=== PATIENT | female | born 1980 | race Caucasian/White ===

== ENCOUNTER → 2021-01-06 | Outpatient (CLI) | payer OTHER | END | disposition home or self-care (01) | LOC: LAB SHORT 10:54 → LAB 10:54 | DX: N39.0 Urinary tract infection, site not specified (principal) | CPT/HCPCS: 87077; 87086; 87186 ==

== ENCOUNTER → 2021-07-15 | Outpatient (CLI) | payer OTHER ==
[2021-07-15 16:01] LABS: BASOPHILS ABSOLUTE AUTO 0.04 K/mm3 (0.00-0.23); BASOPHILS PERCENT AUTO 1 % (0-2); EOSINOPHILS ABSOLUTE AUTO 0.08 K/mm3 (0.00-0.68); EOSINOPHILS PERCENT AUTO 1 % (0-6); Hematocrit 39.1 % (33.0-51.0); Hemoglobin 12.7 g/dL (11.5-16.0); IMMATURE GRAN ABSOLUTE AUTO 0.01 K/mm3 (0.00-0.10); IMMATURE GRAN PERCENT AUTO 0 % (0-1); LYMPHOCYTES ABSOLUTE AUTO 1.74 K/mm3 (0.84-5.20); LYMPHOCYTES PERCENT AUTO 23 % (21-46); MONOCYTES ABSOLUTE AUTO 0.58 K/mm3 (0.16-1.47); MONOCYTES PERCENT AUTO 8 % (4-13); Mean Corpuscular HGB 29.2 pg (26.0-34.0); Mean Corpuscular HGB Conc 32.5 g/dL (31.5-36.5); Mean Corpuscular Volume 90 fL (80-100); Mean Platelet Volume 10.4 fL (9.1-12.4); NEUTROPHILS ABSOLUTE AUTO 5.15 K/mm3 (1.96-9.15); NEUTROPHILS PERCENT AUTO 68 % (41-73); Platelet Count 263 K/mm3 (150-400); RDW Coefficient Variation 13.3 % (11.7-14.2); RDW Standard Deviation 43.6 fL (35.1-46.3); Red Blood Cell Count 4.35 M/mm3 (3.80-5.20)
[2021-07-15 16:13] LABS: Albumin, Blood 3.6 g/dL (3.4-5.0); Albumin/Globulin Ratio 0.9 (0.8-1.8); Bilirubin, Total 0.3 mg/dL (0.1-1.0); Bun/Creatinine Ratio 13.6 (12.0-20.0); Calcium, Blood 8.9 mg/dL (8.5-10.1); Creatinine, Blood 1.03 mg/dL (0.40-1.00); Globulin, Blood 3.8 g/dL (2.2-4.0); Potassium, Blood 4.1 mmol/L (3.5-5.5); Total Protein, Blood 7.4 g/dL (6.4-8.2)
[2021-07-15 16:39] LABS: International Normalized Ratio 1.03; Prothrombin Time Results 10.8 Sec (9.7-11.5)
== END ==
LOC: LAB SHORT 15:57 → LAB EV 15:57
PROVIDERS: General Practice
DX: R58 Hemorrhage, not elsewhere classified (principal)
CPT/HCPCS: 80053; 85025; 85610; 85730

== ENCOUNTER → 2021-09-06 | Outpatient (CLI) | payer OTHER ==
[2021-09-06 16:23] LABS: Protein, Urine Quantitative <5.0 mg/dL (0.0-11.9)
[2021-09-06 17:35] LABS: Microalb/Creat Ratio UR, Rand Unable to Calculate mg/g (0.000-30.000); Microalbumin, Random Urine <5.000 mg/L (0.000-20.000)
== END | disposition home or self-care (01) ==
LOC: LAB 06:30 → LAB SHORT 06:30
PROVIDERS: Internal Medicine Nephrology
DX: N18.2 Chronic kidney disease, stage 2 (mild) (principal); D63.1 Anemia in chronic kidney disease; N25.81 Secondary hyperparathyroidism of renal origin; E55.9 Vitamin D deficiency, unspecified; E78.00 Pure hypercholesterolemia, unspecified; D51.8 Other vitamin B12 deficiency anemias; D52.8 Other folate deficiency anemias; D50.9 Iron deficiency anemia, unspecified; R76.9 Abnormal immunological finding in serum, unspecified; R94.5 Abnormal results of liver function studies; R94.6 Abnormal results of thyroid function studies
CPT/HCPCS: 81050; 82043; 82570; 84156

== ENCOUNTER → 2022-02-07 | Outpatient (CLI) | payer OTHER | END | disposition home or self-care (01) | LOC: LAB SHORT 18:52 → LAB 18:52 | DX: N39.0 Urinary tract infection, site not specified (principal) | CPT/HCPCS: 87077; 87086; 87186 ==

== ENCOUNTER → 2022-03-02 | Outpatient (CLI) | payer OTHER ==
[2022-03-07 15:10] LABS: HPV 16 Negative (Negative); HPV 18 Negative (Negative); HPV OTHER HR TYPES Negative (Negative)
== END | disposition home or self-care (01) ==
LOC: LAB 12:53 → LAB SHORT 12:53
PROVIDERS: Physician Assistant
DX: Z01.419 Encounter for gynecological examination (general) (routine) without abnormal findings (principal)
CPT/HCPCS: 87624; 88175

== ENCOUNTER 2024-06-18 10:42 | Day surgery (SDC) | payer OTHER ==
[~2024-06-18] VITALS: Ht 165.1 cm; Wt 92.5 kg
[2024-06-18] VITALS (14 sets, daily range): BP systolic 109–143; BP diastolic 59–89
[~2024-06-18 10:42] MED LIST: Acetaminophen 500 MG Tab PO SCH; B-121000 MC3 PO; C COMPLEX1000 M1 PO; CHONDR PO; COENZYME Q-10200 M1 PO; CeFAZolin Sodium 2,000 MG in NS 100 ML IV SCH; FISH OIL 1,2001 EAC4 PO; FURO20 PO; GLUCOS PO; LATA.005SO BOTHEYES; Lactated Ringer's 1,000 ML IV SCH; MAGNESIUM250 M1 PO; MSM PO; Nexium40 MG PO; POTA10T PO; THERA-D2000 UNIT PO; TIMO.5OPSO BOTHEYES; VITAMIN A PO; VITAMIN E PO; VITB2 PO; ZINC15 PO; [UNRECOGNIZED DRUG - OTHER] PO
--- NOTE | 2024-06-18 11:35 | NUR ---
Ambulatory in Day Surgery. History, Chart, Medications and Allergies reviewed before start of procedure. Lungs clear T/O to Auscultation. Patient confirms NPO status and agrees with scheduled surgery. Pre-Op teaching done. Pt verbalizes understanding. Patient States Post-Procedure ride home has been arranged. PT BELONGINGS PLACED UNDERNEATH GURNEY FOR SAFEKEEPING. PT MOM AT BEDSIDE. WILL TAKE PT GLASSES TO PACU ONCE SHE ROLLS BACK TO OR.
[2024-06-18] MEDS ORDERED: Bupivacaine 0.5% HCl 5 MG/ML 30MLVIAL ONE (12:12)
[2024-06-18] MEDS ORDERED: propofoL 200 ML IV ONE (12:19)
[2024-06-18] MEDS ORDERED: Lidocaine HCl 4% 5 ML SDA ONE (12:19)
[2024-06-18] MEDS ORDERED: HYDROmorphone HCl/Pf 1MG SYR ONE (12:24)
--- NOTE | 2024-06-18 12:26 | NUR ---
PT GLASSES TAKEN TO PACU FOR SAFEKEEPING.
[2024-06-18] MEDS ORDERED: Dexamethasone Sod Phos 10 MG/ML 1ML VIAL ONE (12:35)
[2024-06-18] MEDS ORDERED: Rocuronium Bromide 10 MG/ML 5ML Injection IV ONE (12:35)
[2024-06-18] MEDS ORDERED: Metoclopramide HCl 5MG / ML 2ML Vial ONE (12:35)
[2024-06-18] MEDS ORDERED: Ondansetron HCl 2 MG / ML 2ML Vial ONE (12:35)
[2024-06-18] MEDS ORDERED: Ketorolac Tromethamine 30mg Vial ONE (12:36)
[2024-06-18] MEDS ORDERED: Sugammadex Sodium 200 MG/2ML SDV (100 MG/ML) ONE (12:36)
[2024-06-18] MEDS ORDERED: Famotidine 10 MG/ML 2ML Vial ONE (12:37)
[2024-06-18] MEDS ORDERED: FentaNYL Citrate 50 MCG/ML 2 ML Injection ONE (13:46)
[2024-06-18] MEDS ORDERED: DiphenhydrAMINE HCL 25 MG Cap PO PRN (14:05)
[2024-06-18] MEDS ORDERED: HYDROmorphone HCl 2 MG Tab PO PRN (14:05)
[2024-06-18] MEDS ORDERED: FLU VACC TS2024-25(6MOS UP)/PF 45 MCG/0.5 ML SYRINGE IM SCH (14:05)
[2024-06-18] MEDS ORDERED: HYDROmorphone HCl/Pf 1MG SYR IV PRN (14:05)
[2024-06-18] MEDS ORDERED: Ondansetron 4 MG TAB PO PRN (14:10)
[2024-06-18] MEDS ORDERED: Acetaminophen 325 MG TABLET PO PRN (14:10)
[2024-06-18] MEDS ORDERED: Simethicone 80 MG Chew PO PRN (14:10)
[2024-06-18] MEDS ORDERED: Ondansetron HCl 2 MG / ML 2ML Vial IV PRN (14:10)
[2024-06-18] MEDS ORDERED: Estradiol 0.1 MG/24 HR Patch TOP SCH (14:10)
[2024-06-18] MEDS ORDERED: Naloxone HCl 0.4MG / ML 1ML Vial IV PRN (14:10)
[2024-06-18] MEDS ORDERED: Metoclopramide HCl 5MG / ML 2ML Vial IV PRN (14:10)
[2024-06-18] MEDS ORDERED: Ketorolac Tromethamine 15mg Vial IV PRN (14:15)
[2024-06-18] MEDS ORDERED: Lactated Ringer's 1,000 ML IV SCH (14:15)
[2024-06-18] MEDS ORDERED: Metoclopramide HCl 10 MG Tab PO PRN (14:15)
--- NOTE | 2024-06-18 19:55 | NUR ---
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 INCISIONS CDI, ABD SOFT TO PALP. PT HAVING SMALL AMT VAGINAL BLEEDING, VOIDED LIGHT YELLOW URINE, PVR BLADDER SCAN 0. PT REP PAIN MINIMAL, DECLINED NEED FOR PAIN MEDS. PT AMB INDEP, MALKA WELL. DC INSTRUCTIONS AND F/U CARE REVIEWED W/PT AND DC INSTRUCTIONS SENT HOME. NO DISTRESS NOTED AT TIME OF DC.
[2024-06-18] MEDS ORDERED: Latanoprost 0.005% Opth Soln 2.5 ML BOTHEYES SCH (21:00)
[2024-06-19] MEDS ORDERED: Pantoprazole Sodium 40 MG Tab PO SCH (06:00)
[2024-06-19] MEDS ORDERED: Timolol 0.5% Opth Soln 5 ML BOTHEYES SCH (09:00)
[2024-06-19] MEDS ORDERED: Misc. Tablet PO SCH (09:00)
== END 2024-06-18 19:54 | disposition home or self-care (01) ==
LOC: ORSCMMR 10:42 → ORD 12:00 → ORSCMMR 12:00 → ORD 13:00 → SURS 14:42 → ORSCMMR 19:54
PROVIDERS: Obstetrics & Gynecology
PROC: 0UT94ZZ Resection of Uterus, Percutaneous Endoscopic Approach (ICD-10-PCS; principal; 2024-06-18 12:00)
PROC: 0UB24ZZ Excision of Bilateral Ovaries, Percutaneous Endoscopic Approach (ICD-10-PCS; principal; 2024-06-18 12:00)
PROC: 0UB74ZZ Excision of Bilateral Fallopian Tubes, Percutaneous Endoscopic Approach (ICD-10-PCS; principal; 2024-06-18 12:00)
DX: N93.9 Abnormal uterine and vaginal bleeding, unspecified (principal); N80.359 Endometriosis of pelvic sidewall, unspecified side, unspecified depth; N80.03 Adenomyosis of the uterus; N72 Inflammatory disease of cervix uteri; R10.2 Pelvic and perineal pain; K22.70 Barrett's esophagus without dysplasia; F32.A Depression, unspecified; Z79.899 Other long term (current) drug therapy; Z87.891 Personal history of nicotine dependence
CPT/HCPCS: 36415; 86850; 86900; 86901; 88307; A9270; J0690; J1100; J1171; J1885; J2003; J2405; J2704; J2765; J3010; J7120

== ENCOUNTER → 2024-07-02 | Outpatient (CLI) | payer OTHER ==
[~2024-07-02] MED LIST changes: -Acetaminophen 500 MG Tab PO SCH; -CeFAZolin Sodium 2,000 MG in NS 100 ML IV SCH; -Lactated Ringer's 1,000 ML IV SCH
[2024-07-02 13:05] LABS: Source, Urine Clean Catch
[2024-07-02 14:54] LABS: Appearance, Urine Clear (Clear); Bilirubin, Urine Neg (Neg); Blood, Urine Neg (Neg); Color, Urine Yellow (P-Yellow); Glucose Qualitative, Urine Neg (Neg); Ketones, Urine Neg (Neg); Leukocyte Esterase, Urine Neg (Neg); Nitrite, Urine Neg (Neg); Protein, Urine Neg (Neg); Urobilinogen, Urine NORM (Normal)
== END ==
LOC: LAB SHORT 13:02 → LAB 13:02
PROVIDERS: Obstetrics & Gynecology
DX: R31.0 Gross hematuria (principal)
CPT/HCPCS: 81003